=== PATIENT | male | born 1965 | race Hispanic/Latino ===

== ENCOUNTER 2022-10-23 09:55 | Inpatient (IN) | payer OTHER ==
[~2022-10-23] VITALS: Ht 167.6 cm; Wt 71.6 kg
[2022-10-23 10:51] LABS: BASOPHILS % (AUTO) 0.2 % (0.0-5.0); EOSINOPHILS % (AUTO) 0.2 % (0.0-8.0); HEMATOCRIT 49.4 % (42-54); LYMPHOCYTES % (AUTO) 10.2 % (21.0-51.0); MEAN CORPUSCULAR HEMOGLOBIN 29.8 pg (27.0-33.0); MEAN CORPUSCULAR HGB CONC 33.4 g/dL (32.0-36.0); MEAN CORPUSCULAR VOLUME 89.3 fL (79-99); MONOCYTES % (AUTO) 15.8 % (3.0-13.0); NEUTROPHILS % (AUTO) 72.9 % (40.0-77.0); PLATELET COUNT (AUTO) 287 K/uL (130-400); RED BLOOD CELL COUNT(AUTO) 5.53 MIL/uL (4.50-6.20); WHITE BLOOD COUNT (AUTO) 12.2 K/uL (4.8-10.8)
[2022-10-23 11:03] LABS: CREATININE 1.2 mg/dL (0.5-1.5); POTASSIUM 3.6 mmol/L (3.5-5.1)
[2022-10-23 11:08] LABS: ALBUMIN 2.7 g/dL (3.5-5.0); TOTAL PROTEIN, SERUM 7.5 g/dL (6.0-8.3)
[2022-10-23] MEDS ORDERED: ONDANSETRON 4MG INJ IVP ONE (11:30)
[2022-10-23] MEDS ORDERED: MORPHINE 4 MG SYG IVP ONE (11:30)
[2022-10-23] MEDS ORDERED: PANTOPRAZOLE 40 MG/VIAL IVP ONE (11:30)
[2022-10-23] MEDS ORDERED: 0.9%NACL 1000ML 1,000 ML IV ONE (11:30)
[2022-10-23] MEDS ORDERED: IOHEXOL-350 75 ML VIAL IV ONE (15:41)
[2022-10-23 15:59] LABS: APPEARANCE,URINE CLEAR (CLEAR); BILIRUBIN,URINE NEGATIVE (NEGATIVE); COLOR,URINE YELLOW (YELLOW); GLUCOSE, URINE (UA) NEGATIVE (NEGATIVE); KETONES,URINE NEGATIVE (NEGATIVE); LEUKOCYTE ESTERASE ,URINE NEGATIVE Leu/uL (NEGATIVE); NITRATE,URINE NEGATIVE (NEGATIVE); OCCULT BLOOD,URINE NEGATIVE (NEGATIVE); PROTEIN,URINE 50 mg/dL (NEGATIVE); UROBILINOGEN,URINE 0.2 mg/dL (0.2-1.0)
[2022-10-23 16:02] LABS: BACTERIA,URINE RARE /HPF (None Seen); MUCUS,URINE MOD LPF (None Seen); RBC,URINE 0-1 /HPF (0-1); SQUAMOUS EPITHELIAL CELL,UR RARE /HPF (0-2)
[2022-10-23] MEDS ORDERED: MORPHINE 2 MG SYG IM ONE (17:00)
[2022-10-23] MEDS ORDERED: ZOSYN 3.375GM +NS 50ML IVPB SCH (17:30)
[2022-10-23] MEDS ORDERED: 0.9%NACL 50ML IV SCH (17:30)
[2022-10-23] MEDS ORDERED: ZOSYN 3.375GM+NS 50ML 0 ML IVPB ONE (17:41)
[2022-10-23] MEDS ORDERED: ACETAMINOPHEN 325 MG TAB PO PRN (19:00)
[2022-10-23] MEDS: LACTATED RINGERS 1000ML 1,000 ML IV SCH (19:14)
[2022-10-23] MEDS: ZOSYN 3.375GM+NS 50ML 50 ML IVPB SCH (20:11)
[2022-10-23] MEDS ORDERED: ZOSYN 3.375GM+NS 50ML 50 ML IVPB SCH (21:00)
[2022-10-23] MEDS: ONDANSETRON 4MG INJ IV PRN (21:31)
[2022-10-23] MEDS: MORPHINE 2 MG SYG IV PRN (21:31)
[2022-10-23 22:15] VITALS: BP 106/76
[2022-10-23] MEDS ORDERED: LEVO50TA11 PO (22:45)
[2022-10-23] MEDS ORDERED: AMLO-257 PO (22:45)
[2022-10-24 03:54] VITALS: BP 108/65
[2022-10-24] MEDS: ZOSYN 3.375GM+NS 50ML 50 ML IVPB SCH ×3 (04:52→19:56)
[2022-10-24] MEDS: LACTATED RINGERS 1000ML 1,000 ML IV SCH ×2 (04:56→16:46)
[2022-10-24] MEDS: MORPHINE 2 MG SYG IV PRN ×4 (05:04→20:29)
[2022-10-24] MEDS: INSULIN HUMULIN R 100 UNIT/ML 3ML SQ SCH ×5 (06:00→23:30)
[2022-10-24 08:00] VITALS: BP 111/70
[2022-10-24] MEDS: ACETAMINOPHEN 325 MG TAB PO PRN ×3 (08:25→23:02)
[2022-10-24] MEDS: ONDANSETRON 4MG INJ IV PRN (08:25)
[2022-10-24] MEDS ORDERED: PANTOPRAZOLE 40 MG/VIAL IVP SCH (09:00)
[2022-10-24] MEDS ORDERED: LACTULOSE 20 GM/30 ML UDCUP PO ONE (10:30)
[2022-10-24 12:00] VITALS: BP 108/67
[2022-10-24] MEDS: LACTULOSE 20 GM/30 ML UDCUP PO SCH ×2 (12:32→15:01)
[2022-10-24] MEDS ORDERED: PEG 3350/NA SULF,BICARB,CL/KCL 4000 ML SOLN PO ONE (15:00)
[2022-10-24 16:00] VITALS: BP 121/73
[2022-10-24 19:00] VITALS: BP 108/64
[2022-10-24 23:10] VITALS: BP 110/70
[2022-10-25] VITALS (22 sets, daily range): BP systolic 99–131; BP diastolic 59–78
[2022-10-25] MEDS: MORPHINE 2 MG SYG IV PRN ×3 (00:37→14:09)
[2022-10-25] MEDS: LACTATED RINGERS 1000ML 1,000 ML IV SCH ×5 (01:00→20:39)
[2022-10-25] MEDS: ZOSYN 3.375GM+NS 50ML 50 ML IVPB SCH ×3 (04:40→20:38)
[2022-10-25 04:49] LABS: BASOPHILS % (AUTO) 0.7 % (0.0-5.0); EOSINOPHILS % (AUTO) 1.1 % (0.0-8.0); HEMATOCRIT 38.8 % (42-54); LYMPHOCYTES % (AUTO) 14.2 % (21.0-51.0); MEAN CORPUSCULAR HEMOGLOBIN 29.3 pg (27.0-33.0); MEAN CORPUSCULAR HGB CONC 32.7 g/dL (32.0-36.0); MEAN CORPUSCULAR VOLUME 89.6 fL (79-99); MONOCYTES % (AUTO) 14.3 % (3.0-13.0); PLATELET COUNT (AUTO) 257 K/uL (130-400); RED BLOOD CELL COUNT(AUTO) 4.33 MIL/uL (4.50-6.20); RED CELL DISTRIBUTION WIDTH 12.8 % (11.0-15.5); WHITE BLOOD COUNT (AUTO) 10.5 K/uL (4.8-10.8)
[2022-10-25 04:57] LABS: CREATININE 1.2 mg/dL (0.5-1.5); POTASSIUM 3.1 mmol/L (3.5-5.1)
[2022-10-25] MEDS: INSULIN HUMULIN R 100 UNIT/ML 3ML SQ SCH ×4 (05:53→20:39)
[2022-10-25 07:13] LABS: INR 1.32 (0.85-1.15)
[2022-10-25 07:14] LABS: PARTIAL THROMBOPLASTIN TIME 29.1 SEC (26.3-35.5)
[2022-10-25] MEDS ORDERED: PROPOFOL 10 MG/ML 20ML VIAL IV ONE ×2 (09:13)
[2022-10-25] MEDS ORDERED: KETAMINE 50MG/ML SYRINGE 50 MG/ML DISP.SYRIN ONE (09:30)
[2022-10-25] MEDS ORDERED: EPHEDRINE SULFATE 50 MG/ML AMPULE ONE (09:31)
[2022-10-25] MEDS ORDERED: MIDAZOLAM HCL 1 MG/ML 2ML VIAL ONE (09:31)
[2022-10-25] MEDS ORDERED: PREDNISONE 20 MG TABLET PO ONE (11:30)
[2022-10-25] MEDS ORDERED: PANTOPRAZOLE 40 MG TAB DR PO SCH (11:30)
[2022-10-25] MEDS: SULFASALAZINE 500 MG TAB.DR PO SCH ×3 (12:12→20:38)
[2022-10-25] MEDS ORDERED: KCL 20 MEQ ERTAB PO ONE (12:30)
[2022-10-25] MEDS: TRAMADOL /APAP 37.5MG/325MG TAB PO SCH ×2 (14:08→20:38)
[2022-10-25] MEDS ORDERED: PHARMACY COMMUNICATION MISC SCH (16:30)
[2022-10-25] MEDS: MESALAMINE 1000 MG SUPP PR SCH (20:38)
[2022-10-26] VITALS (7 sets, daily range): BP systolic 103–133; BP diastolic 68–85
[2022-10-26] MEDS: TRAMADOL /APAP 37.5MG/325MG TAB PO SCH ×4 (02:19→20:08)
[2022-10-26] MEDS: ZOSYN 3.375GM+NS 50ML 50 ML IVPB SCH ×3 (04:57→20:08)
[2022-10-26] MEDS: LACTATED RINGERS 1000ML 1,000 ML IV SCH ×2 (05:11→16:40)
[2022-10-26] MEDS: LEVOTHYROXINE 50 MCG TABLET PO SCH (05:55)
[2022-10-26] MEDS: INSULIN HUMULIN R 100 UNIT/ML 3ML SQ SCH ×4 (06:40→20:09)
[2022-10-26 07:23] LABS: CREATININE 0.8 mg/dL (0.5-1.5); POTASSIUM 3.6 mmol/L (3.5-5.1)
[2022-10-26] MEDS: SULFASALAZINE 500 MG TAB.DR PO SCH ×4 (08:46→20:08)
[2022-10-26] MEDS: PANTOPRAZOLE 40 MG TAB DR PO SCH (08:46)
[2022-10-26] MEDS: PREDNISONE 20 MG TABLET PO SCH (08:46)
[2022-10-26] MEDS: AMLODIPINE 5 MG TAB PO SCH (08:46)
[2022-10-26] MEDS: MORPHINE 2 MG SYG IV PRN (08:47)
[2022-10-26] MEDS: MESALAMINE 1000 MG SUPP PR SCH (20:09)
[2022-10-26] MEDS: ZOLPIDEM TARTRATE 5 MG TAB PO PRN (21:49)
[2022-10-27] MEDS: TRAMADOL /APAP 37.5MG/325MG TAB PO SCH ×4 (02:49→20:19)
[2022-10-27] MEDS: LACTATED RINGERS 1000ML 1,000 ML IV SCH ×3 (03:00→23:00)
[2022-10-27] MEDS: ZOSYN 3.375GM+NS 50ML 50 ML IVPB SCH ×3 (04:29→20:19)
[2022-10-27 04:51] VITALS: BP 120/71
[2022-10-27] MEDS: INSULIN HUMULIN R 100 UNIT/ML 3ML SQ SCH ×4 (05:38→20:41)
[2022-10-27] MEDS: LEVOTHYROXINE 50 MCG TABLET PO SCH (05:57)
[2022-10-27 08:00] VITALS: BP 121/75
[2022-10-27] MEDS: PANTOPRAZOLE 40 MG TAB DR PO SCH (08:56)
[2022-10-27] MEDS: AMLODIPINE 5 MG TAB PO SCH (08:56)
[2022-10-27] MEDS: SULFASALAZINE 500 MG TAB.DR PO SCH ×4 (08:56→20:19)
[2022-10-27] MEDS: PREDNISONE 20 MG TABLET PO SCH (08:57)
[2022-10-27 12:00] VITALS: BP_SYST 125; BP_SYST 140; BP_DIAS 68; BP_DIAS 77
[2022-10-27 16:00] VITALS: BP 115/69
[2022-10-27 20:00] VITALS: BP 125/78
[2022-10-27] MEDS: MESALAMINE 1000 MG SUPP PR SCH (20:19)
[2022-10-27] MEDS: ZOLPIDEM TARTRATE 5 MG TAB PO PRN (20:28)
[2022-10-28] VITALS: BP 134/78
[2022-10-28] MEDS: TRAMADOL /APAP 37.5MG/325MG TAB PO SCH ×3 (02:00→14:00)
[2022-10-28 04:00] VITALS: BP 135/80
[2022-10-28 05:22] LABS: BASOPHILS % (AUTO) 0.3 % (0.0-5.0); EOSINOPHILS % (AUTO) 0.4 % (0.0-8.0); HEMATOCRIT 36.1 % (42-54); MEAN CORPUSCULAR HEMOGLOBIN 29.8 pg (27.0-33.0); MEAN CORPUSCULAR HGB CONC 33.8 g/dL (32.0-36.0); MONOCYTES % (AUTO) 10.4 % (3.0-13.0); NEUTROPHILS % (AUTO) 60.6 % (40.0-77.0); PLATELET COUNT (AUTO) 302 K/uL (130-400); RED CELL DISTRIBUTION WIDTH 12.5 % (11.0-15.5); WHITE BLOOD COUNT (AUTO) 6.8 K/uL (4.8-10.8)
[2022-10-28] MEDS: ZOSYN 3.375GM+NS 50ML 50 ML IVPB SCH ×2 (05:22→13:16)
[2022-10-28 05:36] LABS: ALBUMIN 1.9 g/dL (3.5-5.0); CREATININE 0.7 mg/dL (0.5-1.5); MAGNESIUM 1.8 mg/dL (1.80-2.40); PHOSPHORUS 2.6 mg/dL (2.5-4.9); POTASSIUM 3.1 mmol/L (3.5-5.1); TOTAL PROTEIN, SERUM 5.8 g/dL (6.0-8.3)
[2022-10-28] MEDS: INSULIN HUMULIN R 100 UNIT/ML 3ML SQ SCH ×2 (06:34→11:30)
[2022-10-28] MEDS: LEVOTHYROXINE 50 MCG TABLET PO SCH (06:38)
[2022-10-28 08:00] VITALS: BP 131/78
[2022-10-28] MEDS: LACTATED RINGERS 1000ML 1,000 ML IV SCH (08:43)
[2022-10-28] MEDS: PANTOPRAZOLE 40 MG TAB DR PO SCH (08:43)
[2022-10-28] MEDS: SULFASALAZINE 500 MG TAB.DR PO SCH ×2 (08:43→13:15)
[2022-10-28] MEDS: AMLODIPINE 5 MG TAB PO SCH (08:43)
[2022-10-28 11:30] VITALS: BP 138/74
[2022-10-28] MEDS ORDERED: MESA1S PR (14:33)
[2022-10-28] MEDS ORDERED: LEVO750T68 PO (14:33)
[2022-10-28] MEDS ORDERED: SULF500T3 PO (14:33)
[2022-10-28] MEDS ORDERED: PRED20TA3 PO (14:34)
[2022-10-28] MEDS ORDERED: LEVOFLOXACIN 750 MG TABLET PO SCH (15:00)
== END 2022-10-28 17:30 | disposition home or self-care (01) | DRG 386 ==
LOC: EDH 09:55 → EDHIP 09:56 → 3CH 22:15
PROVIDERS: ADMIT Hospitalist; ATTEND Hospitalist
PROC: 0DB98ZX Excision of Duodenum, Via Natural or Artificial Opening Endoscopic, Diagnostic (ICD-10-PCS; principal; 2022-10-25)
PROC: 0DB78ZX Excision of Stomach, Pylorus, Via Natural or Artificial Opening Endoscopic, Diagnostic (ICD-10-PCS; 2022-10-25)
PROC: 0DB58ZX Excision of Esophagus, Via Natural or Artificial Opening Endoscopic, Diagnostic (ICD-10-PCS; 2022-10-25)
PROC: 0DBK8ZX Excision of Ascending Colon, Via Natural or Artificial Opening Endoscopic, Diagnostic (ICD-10-PCS; 2022-10-25)
PROC: 0DBL8ZX Excision of Transverse Colon, Via Natural or Artificial Opening Endoscopic, Diagnostic (ICD-10-PCS; 2022-10-25)
PROC: 0DBN8ZX Excision of Sigmoid Colon, Via Natural or Artificial Opening Endoscopic, Diagnostic (ICD-10-PCS; 2022-10-25)
PROC: 0DBP8ZX Excision of Rectum, Via Natural or Artificial Opening Endoscopic, Diagnostic (ICD-10-PCS; 2022-10-25)
PROC: 0DBB8ZX Excision of Ileum, Via Natural or Artificial Opening Endoscopic, Diagnostic (ICD-10-PCS; 2022-10-25)
PROC: 0DBM8ZX Excision of Descending Colon, Via Natural or Artificial Opening Endoscopic, Diagnostic (ICD-10-PCS; 2022-10-25)
PROC: 0DBH8ZX Excision of Cecum, Via Natural or Artificial Opening Endoscopic, Diagnostic (ICD-10-PCS; 2022-10-25)
DX: K51.80 Other ulcerative colitis without complications (principal); E87.1 Hypo-osmolality and hyponatremia; R65.10 Systemic inflammatory response syndrome (SIRS) of non-infectious origin without acute organ dysfunction; K21.00 Gastro-esophageal reflux disease with esophagitis, without bleeding; Z20.822 Contact with and (suspected) exposure to COVID-19; K64.8 Other hemorrhoids; K29.00 Acute gastritis without bleeding; E11.9 Type 2 diabetes mellitus without complications; E03.9 Hypothyroidism, unspecified; D72.829 Elevated white blood cell count, unspecified; I10 Essential (primary) hypertension; E88.09 Other disorders of plasma-protein metabolism, not elsewhere classified; E86.9 Volume depletion, unspecified; E78.00 Pure hypercholesterolemia, unspecified; Z82.49 Family history of ischemic heart disease and other diseases of the circulatory system; Z83.3 Family history of diabetes mellitus
CPT/HCPCS: 36415; 43239; 45380; 74177; 80048; 80053; 81001; 82270; 82948; 83735; 84100; 85025; 85610; 85730; 86140; 86850; 86900; 86901; 87507; 87635; A4606; C9113; G0378; J1815; J2250; J2270; J2405; J2543; J2704; J3490; J7030; Q9967